=== PATIENT | female | born 1990 | race Caucasian/White ===

== ENCOUNTER 2017-12-08 03:37 | Inpatient (IN) | payer OTHER ==
[2017-12-08] MEDS ORDERED: Sodium Chloride 0.9% 10 ML Syringe FLUSH PRN (04:33)
[2017-12-08] MEDS ORDERED: Lactated Ringers 1,000 ML IV SCH (04:45)
[2017-12-08] MEDS ORDERED: Oxytocin/Lactated Ringers 10 UNIT/1,000 ML BAG IV SCH (04:45)
[2017-12-08] MEDS ORDERED: Lidocaine 1% 50 ML MDV ONE (06:42)
[2017-12-08] MEDS ORDERED: Lidocaine 1% 10 ML MDV INJECT ONE (06:51)
--- NOTE | 2017-12-08 07:53 | PCM.SN ---
- Free Text/Narrative Note: Qing is a 27-year-old 2 now para 2002 white female at 99-1/7 weeks gestational age who was admitted this a.m. in active labor. She changed to 4 cm from 2 cm dilation and was radha every 3-5 minutes. heart was were reassuring. Bag saini was intact. At about 8 cm dilation the bag saini was ruptured. Patient rapidly went on to deliver a viable, 3910 grams (8 pound, 10 oz) male , measuring 22 inches, in an occiput anterior position with patient being in a squatting position leaning over the squatting bar at the time of delivery. Baby delivered at 0731 hrs. The patient had a first-degree laceration which was repaired with 3-0 Monocryl suture in a single figure-of- eight stitch. Seizure was used. Patient not using any analgesia during the course of labor. Her blood was obtained. Pitocin was started IV to facilitate increase in uterine tone and decreased likelihood of bleeding. The placenta delivered in a Eric presentation, appeared intact and complete and was discarded per patient desire. Estimated blood loss was 200 mL. Patient plans to breast-feed. Condition: Good
[2017-12-08] MEDS ORDERED: Witch Hazel Medicated Pads 100/Jar TOP PRN (08:07)
[2017-12-08] MEDS ORDERED: Ibuprofen 600 MG Tab PO PRN (08:07)
[2017-12-08] MEDS ORDERED: Lanolin 100% Cream 7 GM Tube TOP PRN (08:07)
[2017-12-08] MEDS ORDERED: Docusate Sodium 100 MG Cap PO PRN (08:07)
[2017-12-08] MEDS ORDERED: Acetaminophen 325 MG Tab PO PRN (08:07)
[2017-12-08] MEDS ORDERED: Benzocaine/Menthol 20%-0.5% Spray 56 GM Canister TOP PRN (08:07)
--- NOTE | 2017-12-08 09:47 | HP ---
DATE OF ADMISSION: 12/08/2017 ADMISSION DIAGNOSIS: A 39 and 1/7th week intrauterine , active labor. HISTORY OF PRESENT ILLNESS: The patient is a 27-year-old, 2, para 1-0-0-1 white female who was admitted this a.m. with contractions every 5 minutes apart and change in cervix. She has an SHIN of 12/14/2017 as based upon an early ultrasound done on 05/22/2017 at 10 and 4/7th weeks gestational age. This ultrasound was supported by 2 other ultrasounds done on 08/14/2017 and 09/23/2017. Her cervix is changed from last evaluation clinic of 3 cm, 90% effaced, -3 station to 4 cm at this time. She is actively radha. heart tones are reassuring. HISTORY: 2, para 1-0-0-1. Her last menstrual period was on 11/28/2016 was definite, but the patient has periods that vary in length up to 35 days at times for their interval. Menarche age 12. Positive HCG on 04/04/2017. Not using any control at the time of conception. Her last delivery was on 04/22/2016 at 39 and 6/7th weeks gestational age. She labored for 17 hours and delivered a 7 pounds 13 ounces female via normal spontaneous vaginal delivery. That child's name is Louise Layne. The patient's course began with a first visit on 05/22/2017. She had regular evaluations throughout the . Weight gain was from 143 pounds to 194 pounds for 51 pounds weight gain. Her fundal height growth was appropriate and her vital signs remained stable through the . The patient plans to breastfeed. She declined genetic evaluation. She desires natural childbirth. Her [place] Depression Screen score on 08/14/2017 was 1/30. Her group B strep screen is negative. The patient is Rh negative and did receive RhoGAM at second trimester. Date was 09/23/2017. LABORATORY DATA: Her laboratory testing in shows her blood to be O negative with negative antibody screen. First hemoglobin was 13.5 and platelets were 305,000. She is rubella immune. RPR is nonreactive. Hepatitis B surface antigen and HIV assays were both negative. Chlamydia and gonorrhea assays were both negative. Second trimester testing showed hemoglobin decreased to 10.2 g/dL. Her platelets were normal at 235,000. Her 1-hour glucose tolerance test was 101. Group B strep screen was negative. ALLERGIES: None. CURRENT MEDICATIONS: vitamins 1 daily. The patient has been advised to take iron supplementation. PAST MEDICAL HISTORY: 1. 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 2. She was on depression medication in college. 3. Normal spontaneous vaginal delivery in 2016. PAST SURGICAL HISTORY: Tonsillectomy 2005. FAMILY HISTORY: Mother is alive and well. Father is alive. Two brothers. They are alive and well. Maternal grandmother is secondary to colon cancer. Maternal grandfather is secondary to old age. Paternal grandmother is secondary to a fractured hip and complications of this. Paternal grandfather secondary to an accident and stroke. No anesthesia, bleeding, blood clotting problems noted in the family. SOCIAL HISTORY: The patient is . is Dashawn Wellington. The patient works at [employer]. They live in [place]. She does not use any significant amounts of alcohol, drugs, or tobacco. REVIEW OF SYSTEMS: GENERAL: The patient is a well developed, well nourished female who has no concerns. She is in active labor. SKIN: Negative. CARDIOVASCULAR: No chest pain or shortness of breath. RESPIRATORY: No infectious symptoms. BREASTS: Changes associated with . The patient plans to breastfeed. GI: Negative. : Increased fundal height. Baby in vertex presentation by Baltazar maneuvers. EXTREMITIES/MUSCULOSKELETAL: Negative with exception of occasional trace edema in lower extremities bilaterally. NEUROLOGICAL: Negative. PHYSICAL EXAMINATION: VITAL SIGNS: Blood pressure 102/64 on last evaluation in clinic. Weight is 194. GENERAL: The patient is a well-developed, well-nourished, pleasant female, stated age, in no acute distress. SKIN: Warm, dry without lesions. HEENT: Neck and back within normal limits. LUNGS: Clear with good breath sounds in all lung zurita. CARDIOVASCULAR: Shows regular rate and rhythm. ABDOMEN: Protuberant with with last fundal height of 39.5 cm. GENITAL: As above. EXTREMITIES AND NEUROLOGICAL: Grossly within normal limits. ASSESSMENT: 1. A 39 and 1/7th week intrauterine , active labor. 2. Group B strep screen negative. 3. The patient plans to breastfeed. 4. Rubella immune. 5. The patient desires natural labor. PLAN: 1. Anticipate normal spontaneous vaginal delivery. 2. Routine labor care. 3. Intermittent monitoring. MMODAL /[id number]
[2017-12-08] MEDS: Prenatal Multivitamin with Calcium/Folic Acid/Iron Tab PO SCH (17:12)
[2017-12-08] MEDS ORDERED: fentaNYL 100 MCG/2 ML SDV ONE (22:07)
[2017-12-08] MEDS ORDERED: Bupivacaine/fentaNYL/NS 100 ML Bag ONE (22:07)
--- NOTE | 2017-12-09 05:48 | PCM.SN ---
- Free Text/Narrative Note: note: Patient is doing well in the period. Minimal lochia, voiding well, ambulated without problems. Nursing without concerns. Patient is afebrile, vital signs are stable Abdomen is flat, soft, uterus is below the umbilicus and is firm and nontender. Legs are nontender. Assessment: recovery going well. Hemoglobin pending today. Plan: Routine care. Patient be discharged home within the next 24- 48 hours.
--- NOTE | 2017-12-09 10:42 | PCM.DCSUM1 ---
Discharge Summary - Hospital Course Free Text/Narrative:: Qing is a 27-year-old 2 now para 2002 white female at 99-1/7 weeks gestational age who was admitted this a.m. in active labor. She changed to 4 cm from 2 cm dilation and was radha every 3-5 minutes. heart was were reassuring. Bag saini was intact. At about 8 cm dilation the bag saini was ruptured. Patient rapidly went on to deliver a viable, 3910 grams (8 pound, 10 oz) male , measuring 22 inches, in an occiput anterior position with patient being in a squatting position leaning over the squatting bar at the time of delivery. Baby delivered at 0731 hrs. The patient had a first-degree laceration which was repaired with 3-0 Monocryl suture in a single figure-of- eight stitch. Seizure was used. Patient not using any analgesia during the course of labor. Her blood was obtained. Pitocin was started IV to facilitate increase in uterine tone and decreased likelihood of bleeding. The placenta delivered in a Eric presentation, appeared intact and complete and was discarded per patient desire. Estimated blood loss was 200 mL. Patient plans to breast-feed. Spinal patient is done well. She is voiding well, ambulating well, nursing without problems and has minimal lochia. She is desiring discharge home. - Discharge Data Discharge Date: 12/09/17 Discharge Disposition: Home, Self-Care 01 Condition: Good - Patient Instructions Diet: Regular Diet as Tolerated (Nursing diet with increase calories and calcium was recommended) Activity: As Tolerated (No intercourse or tampons until bleeding resolves) Driving: Do Not Drive (2 days) Showering/Bathing: May Shower (May take a bath) Notify Provider of: Fever, Increased Pain, Swelling and Redness, Nausea and/or Vomiting - Discharge Plan Home Medications: Home Meds PNV95/Ferrous Fumarate/FA [ Vitamin Tablet] 1 tab PO DAILY 04/21/16 [ History] Ibuprofen [IJD: Ibuprofen] 600 mg PO Q4H PRN #30 tablet 04/24/16 [Rx] Acetaminophen [Tylenol] 650 mg PO Q4H PRN tablet 12/09/17 [Rx] Referrals: Aris Taylor MD [Primary Care Provider] - - Discharge Summary/Plan Comment DC Time >30 min.: No Discharge Summary/Plan Comment: Discharge instructions: 1. Discharge home 2. Diet, activity and follow-up discussed with patient. Recommend nursing diet with increased calories and calcium. 3. Precautions given concern increased pain, bleeding, temperature, signs/ symptoms of DVT/PE. 4. Medications per home medication was printed, discussed with and given to the patient. 5. Return to clinic-Dr. Taylor[facility] in 2 weeks. Diagnosis: Term -delivered Condition: Good - Patient Data Vitals - Most Recent: Last Vital Signs Temp 36.7 C 12/09/17 04:31 Pulse 77 12/09/17 04:31 Resp 16 12/09/17 04:31 BP 113/63 12/09/17 04:31 Pulse Ox 98 12/09/17 04:31 Weight - Most Recent: 89.675 kg I&O - Last 24 hours: Intake & Output 12/08/17 12/09/17 12/09/17 22:59 06:59 14:59 Intake Total 720 Balance 720 Lab Results - Last 24 hrs: Laboratory Results - last 24 hr 12/08/17 12/09/17 12/09/17 Range/Units 05:00 06:45 06:45 WBC 15.19 H (3.98-10.04) K/mm3 RBC 3.50 L (3.98-5.22) M/mm3 Hgb 9.6 L (11.2-15.7) gm/L Hct 31.0 L (34.1-44.9) % MCV 88.6 (79.4-94.8) fl MCH 27.4 (25.6-32.2) pg MCHC 31.0 L (32.2-35.5) g/dl RDW Std Deviation 45.4 (36.4-46.3) fL Plt Count 236 (182-369) K/mm3 MPV 11.5 (9.4-12.3) fl RPR Non-reactive (NONREACTIVE) Blood Type O NEGATIVE Gel Antibody Screen Positive Screen 0 ros/5 flds - neg RhIG Candidate? Yes Rhogam Indicated Yes, baby rh pos H Med Orders - Current: Current Medications Acetaminophen (Tylenol) 650 mg PO Q4H PRN PRN Reason: mild pain or fever Benzocaine/Menthol (Dermoplast Pain Relief [place]) 0 gm TOP ASDIRECTED PRN PRN Reason: Perineal Comfort Measure Docusate Sodium (Colace) 100 mg PO BID PRN PRN Reason: Constipation Emollient Ointment (Lansinoh Hpa) 0 gm TOP ASDIRECTED PRN PRN Reason: Sore Nipples Ibuprofen (Motrin) 600 mg PO Q4H PRN PRN Reason: Mild pain or fever Prenat Multivit/[place]/Iron/Folic Ac ( Plus Iron) 1 each PO DAILY [facility] Last Admin: 12/08/17 17:12 Dose: Not Given Witziggy Aarti (Tucks) 1 pad TOP ASDIRECTED PRN PRN Reason: Hemorrhoid pain Discontinued Medications Fentanyl (Sublimaze) Confirm Administered Dose 100 mcg .ROUTE .STK-MED ONE Stop: 12/08/17 22:08 Last Admin: 12/09/17 02:09 Dose: Not Given Fentanyl/Bupivacaine HCl (Fentanyl/Bupivacaine/Ns 2 Mcg-0.125% 100 Ml) Confirm Administered Dose 100 ml .ROUTE .STK-MED ONE Stop: 12/08/17 22:08 Last Admin: 12/09/17 02:09 Dose: Not Given Lactated Ringer's (Ringers, Lactated) 1,000 mls @ 100 mls/hr IV ASDIRECTED [facility] Oxytocin/Lactated Ringer's (Pitocin In Lr 10 Units/1,000 Ml) 10 unit in 1,000 mls @ 500 mls/hr IV ASDIRECTED [facility] Lidocaine HCl (Xylocaine 1%) Confirm Administered Dose 50 ml .ROUTE .STK-MED ONE Stop: 12/08/17 06:43 Last Admin: 12/08/17 17:12 Dose: Not Given Lidocaine HCl (Xylocaine 1%) 10 ml INJECT ONETIME ONE Stop: 12/08/17 06:52 Last Admin: 12/09/17 02:10 Dose: Not Given Sodium Chloride (Saline Flush) 10 ml FLUSH ASDIRECTED PRN PRN Reason: Keep Vein Open
[2017-12-09 14:10] VITALS: BP 116/62
[2017-12-09] MEDS: Prenatal Multivitamin with Calcium/Folic Acid/Iron Tab PO SCH (14:15)
== END 2017-12-09 12:30 | disposition home or self-care (01) | DRG 775 ==
LOC: JD.OBCHECK 03:37 → JD.OB 03:42 → JD.OBCHECK 04:33 → JD.OB 04:52 → OBSVTOIN 07:31 → JD.OB 07:32
PROVIDERS: ADMIT Obstetrics & Gynecology; ATTEND Obstetrics & Gynecology
PROC: 10E0XZZ Delivery of Products of Conception, External Approach (ICD-10-PCS; principal; 2017-12-08)
PROC: 10907ZC Drainage of Amniotic Fluid, Therapeutic from Products of Conception, Via Natural or Artificial Opening (ICD-10-PCS; 2017-12-08)
PROC: 6A550ZT Pheresis of Cord Blood Stem Cells, Single (ICD-10-PCS; 2017-12-08)
DX: O70.0 First degree perineal laceration during delivery (principal); Z3A.39 39 weeks gestation of pregnancy; Z37.0 Single live birth
CPT/HCPCS: 36415; 59025; 59300; 59409; 85027; 86592; J2790

== ENCOUNTER 2021-05-07 17:21 | Inpatient (IN) | payer OTHER ==
[2021-05-07] MEDS ORDERED: Sodium Chloride 0.9% 10 ML Syringe FLUSH PRN (17:38)
[2021-05-07] MEDS ORDERED: Ondansetron 4 MG/2 ML SDV IVPUSH PRN (17:38)
[2021-05-07] MEDS ORDERED: Nalbuphine 10 MG/1 ML Vial IVPUSH PRN (17:38)
[2021-05-07] MEDS ORDERED: Oxytocin/Lactated Ringers 10 UNIT/1,000 ML BAG IV SCH ×2 (17:45)
[2021-05-07] MEDS ORDERED: Lactated Ringers 1,000 ML IV SCH (17:45)
--- NOTE | 2021-05-07 21:50 | PCM.LDHP ---
L&D History of Present Illness - General Date of Service: 05/07/21 Admit Problem/Dx: Patient Status Order with Admit Dx/Problem 05/07/21 17:38 Patient Status [ADT] Routine Admission Diagnosis/Problem Admission Diagnosis/Problem 05/07/21 21:27 Qing is a 30-year-old 3 para 2-0-0-2 female at 39-5/7 weeks gestational age with an SHIN of 05/09/2021 admitted for induction of labor. Source of Information: Patient History Limitations: Reports: No Limitations - History of Present Illness Introduction:: Qing is a 30-year-old 3 para 2-0-0-2 female at 39-5/7 weeks gestational age with an SHIN of 05/09/2021 admitted for induction of labor. The procedure, risk, benefits, alternatives of care including allowing for natural onset of labor discussed with patient. She appears understand and wished to proceed. [employer]ATORY ASSISTANT history: 3 para 2-0-0-2. Patient had menarche at age 11. Cycles q. 28 days, regular. Certain last menstrual period started 08/02/2020 and is the dating parameter for the . Patient has had no abnormal Pap smears in the past. She has had no STIs. Past obstetric history includes the followin. Male infant born 12/08/2019 at 39-1/7 weeks gestational [facility] Brendon 2. Female born 04/22/2018 at 39-6/[facility]-child's name is Louise Layne course: Grace was first seen for care on 10/12/2020 at 10-1/7 weeks gestational age. Ultrasound done at that time showed a final SHIN of 05/09/2021 which is consistent with her LMP dating. Follow-up ultrasounds done on 12/28/2020 and again on 01/31/2021 were consistent with dates. Patient is seen regularly throughout the course. Her weight gain was from 184 up to one 222.8 for a 36 pound increase. Fundal height growth was appropriate. Patient desires natural . She is group B strep negative. She plans to breast-feed. She declines prequel noninvasive screen. RhoGam was given on 02/15/2021 per protocol. Immunizations include Tdap given 03/13/2021. She is rubella immune. Laboratory testing in shows blood to be O- with a negative antibody screen. First hemoglobin was 12.9 and platelets were 284,000. She is rubella immune. RPR is nonreactive. Urine culture negative. Hepatitis B surface antigen and HIV assays were both negative. Chlamydia, gonorrhea and hepatitis C evaluations were all negative. Second trimester labs showed hemoglobin 11.0 g/dL which time patient was started on ferrous sulfate 325 mg/day. Her platelets were 288,000 and her 1 hour GTT was normal at 116. Antibody screen on 02/14/2021 was negative. Group B strep screen was negative. Allergies: None Medications: 1. Ferrous sulfate 325 mg p.o. daily 2. vitamins daily Past medical history: 1. x2. 2. Patient had a reaction to TB testing Past surgical history 1. Tonsillectomy 2005 Family history: Mother is alive and well. Father is alive. She has 2 brothers normally in good health. Maternal grandmother secondary to colon cancer. Maternal grandfather secondary to old age. Paternal grandmother secondary to fractured hip and complications related to that. Paternal grandfather secondary to accident and a stroke. There is no asthma, anesthesia, bleeding or blood clotting problems noted in the family. Social history: Patient is . She works as [employer]. She does not use any significant muscle alcohol drugs tobacco. is Dashawn. Review of systems: In general patient has no complaints. On admission to labor letter she is having some contractions approximately every 6 minutes. No bloody show, leakage of fluid or other problems noted. Baby has been active. Skin: Negative Lungs: No infectious symptoms or shortness of breath Cardiovascular: No chest pain or exercise intolerance Breasts: No lumps, changes in size, pain, dimpling, discharge or axillary or supraclavicular concerns. GI: Negative : As per HPI. Some contractions noted. Musculoskeletal: Negative Neurological: Negative In general the patient is well-developed, well-nourished, pleasant female of stated age in no acute distress. Skin is warm dry without lesions. HEENT, neck and back within normal limits. Lungs are clear with good breath sounds in all lung zurita. Cardiovascular exam shows regular and rhythm without murmurs. Breast exam done previously at first visit was unremarkable and ther efore it is not really done. Patient plans to breast-feed. Abdomen is gravid with last fundal height in clinic on 05/07/2021 at 40.5 cm. Baby in vertex presentation. Genital per digital evaluation on admission was 3 cm, 9% effaced, mid position, -2 station, cephalic presentation, soft. AROM undertaken with resultant clear amniotic fluid. Extremities and neurological exam are grossly within normal limits. - Related Data Allergies/Adverse Reactions: Allergies Allergy/AdvReac Type Severity Reaction Status Date / Time No Known Allergies Allergy Verified 05/07/21 17:35 Home Medications: Home Meds Pnv No.95/Ferrous Fum/Folic AC [ Vitamin Tablet] 1 tab PO DAILY 04/21/16 [History] Ferrous Sulfate [Iron] 325 mg PO DAILY 05/07/21 [History] Past Medical History HEENT History: Reports: None Respiratory History: Reports: TB, Other (See Below) Other Respiratory History: had reaction to TB test and was treated. ? whether or not had TB [employer]ATORY ASSISTANT History: Reports: Hematologic History: Reports: Anemia Dermatologic History: Reports: Other (See Below) Other Dermatologic History: Skin tags during - Infectious Disease History Infectious Disease History: Reports: TB, Other (See Below) Other Infectious Disease History: Unknown if actual TB infection or not, but treated previously - Past Surgical History HEENT Surgical History: Reports: Tonsillectomy Respiratory Surgical History: Reports: None Dermatological Surgical History: Reports: None Social & Family History - Family History Family Medical History: Unobtainable - Tobacco Use Tobacco Use Status *Q: Never Tobacco User - Caffeine Use Caffeine Use: Reports: None - Recreational Drug Use Recreational Drug Use: No H&P Review of Systems - Review of Systems: Review Of Systems: See Below L&D Exam - Exam Exam: See Below - Vital Signs Vital Signs: Last Vital Signs Temp 36.9 C 05/07/21 17:51 Pulse 79 05/07/21 17:51 Resp 18 05/07/21 17:51 BP 126/64 05/07/21 17:51 Pulse Ox 99 05/07/21 17:51 Weight: 104.78 kg - Patient Data Lab Results Last 24 hrs: Laboratory Results - last 24 hr 05/07/21 05/07/21 Range/Units 18:00 18:28 WBC 10.43 H (3.98-10.04) K/mm3 RBC 3.82 L (3.98-5.22) M/mm3 Hgb 10.6 L (11.2-15.7) gm/dl Hct 34.1 (34.1-44.9) % MCV 89.3 D (79.4-94.8) fl MCH 27.7 (25.6-32.2) pg MCHC 31.1 L (32.2-35.5) g/dl RDW Std Deviation 47.3 H (36.4-46.3) fL Plt Count 285 (182-369) K/mm3 MPV 11.3 (9.4-12.3) fl Neut % (Auto) 73.2 H (34.0-71.1) % Lymph % (Auto) 16.0 L (19.3-51.7) % Saline % (Auto) 7.6 (4.7-12.5) % Eos % (Auto) 1.5 (0.7-5.8) Baso % (Auto) 0.3 (0.1-1.2) % Neut # (Auto) 7.63 H (1.56-6.13) K/mm3 Lymph # (Auto) 1.67 (1.18-3.74) K/mm3 Saline # (Auto) 0.79 H (0.24-0.36) K/mm3 Eos # (Auto) 0.16 (0.04-0.36) K/mm3 Baso # (Auto) 0.03 (0.01-0.08) K/mm3 SARS-CoV-2 RNA (DENISSE) Negative (NEGATIVE) Result Diagrams: 05/07/21 18:28 - Problem List (1) 39 weeks gestation of SNOMED Code(s): 58295299 ICD Code: Z3A.39 - 39 WEEKS GESTATION OF Status: Acute Current Visit: Yes Problem List Initiated/Reviewed/Updated: Yes Orders Last 24hrs: Active Orders 24 hr Category Date Time Status Patient Status [ADT] Routine ADT 05/07/21 17:38 Active Activity as Tolerated [RC] PF Care 05/07/21 17:38 Active Communication Order [RC] ASDIRECTED Care 05/07/21 17:38 Active Notify Provider [RC] [facility] Care 05/07/21 17:38 Active Notify Provider [RC] PRN Care 05/07/21 17:38 Active Peripheral IV Care [RC] . DIRECTED Care 05/07/21 17:38 Active Vital Signs [RC] PER UNIT ROUTINE Care 05/07/21 17:38 Active Regular Diet [DIET] Diet 05/07/21 Dinner Active BLOOD BANK HOLD SPECIMEN [BBK] Stat Lab 05/07/21 18:28 Received RAPID PLASMA REAGIN,RPR [CHEM] Routine Lab 05/07/21 18:28 Received Lactated Ringers [Ringers, Lactated] 1,000 ml Med 05/07/21 17:45 Active IV ASDIRECTED Nalbuphine [Nubain] Med 05/07/21 17:38 Active 10 mg IVPUSH Q2H PRN Ondansetron [Zofran] Med 05/07/21 17:38 Active 4 mg IVPUSH Q4H PRN Oxytocin/Lactated Ringers [Pitocin in LR 10 Units/1,000 Med 05/07/21 17:45 Active ML] 10 unit in 1,000 ml IV .CONTINUOUS Oxytocin/Lactated Ringers [Pitocin in LR 10 Units/1,000 Med 05/07/21 17:45 Active ML] 10 unit in 1,000 ml IV TITRATE Sodium Chloride 0.9% [Saline Flush] Med 05/07/21 17:38 Active 10 ml FLUSH ASDIRECTED PRN Electronic Heart Tones Ext w TOCO [WOMSER] Oth 05/07/21 17:38 Ordered Routine Electronic Heart Tones Internal [WOMSER] Per Unit Oth 05/07/21 17:38 Ordered Routine Peripheral IV Insertion Adult [OM.PC] Routine Oth 05/07/21 17:38 Ordered Resuscitation Status Routine Resus Stat 05/07/21 17:38 Ordered Medication Orders Oxytocin/Lactated Ringer's (Pitocin In Lr 10 Units/1,000 Ml) 10 unit in 1,000 mls @ 12 mls/hr IV TITRATE HERBER; Protocol Oxytocin/Lactated Ringer's (Pitocin In Lr 10 Units/1,000 Ml) 10 unit in 1,000 mls @ 500 mls/hr IV .CONTINUOUS HERBER Lactated Ringer's (Ringers, Lactated) 1,000 mls @ 100 mls/hr IV ASDIRECTED HERBER Nalbuphine HCl (Nalbuphine 10 Mg/1 Ml Vial) 10 mg IVPUSH Q2H PRN PRN Reason: Pain Ondansetron HCl (Ondansetron 4 Mg/2 Ml Sdv) 4 mg IVPUSH Q4H PRN PRN Reason: Nausea/Vomiting Sodium Chloride (Sodium Chloride 0.9% 10 Ml Syringe) 10 ml FLUSH ASDIRECTED PRN PRN Reason: Keep Vein Open Assessment/Plan Comment:: 1. Qing is a 30-year-old 3 para 2-0-0-2 female at 39-5/7 weeks gestational age with an SHIN of 05/09/2021 admitted for induction of labor. 05/07/21. 2. Group B strep negative 3. Patient desires natural labor 4. In early labor at the time of admission for induction. 5. Patient plans to breast-feed 6. She is rubella immune. Tdap was given on 03/13/2021 Plan: 1. AROM undertaken for induction of labor with resultant clear amniotic fluid 2. Intermittent monitoring 3. Natural childbirth per patient desire 4. Support breast-feeding decision 5. Routine admission labs consist of RPR, Covid testing.
--- NOTE | 2021-05-07 22:08 | PCM.SN.2 ---
- Free Text/Narrative Note: Delivery note: Stage I: Qing is a 30-year-old 3 now para 3-0-0-3 female at 39-5/7 weeks gestational age with an SHIN of 05/09/2021 admitted for induction of labor. 05/07/21. She underwent AROM with resultant clear amniotic fluid. This placed her into an active course of labor and over the course the next 2 hours patient became completely dilated. She had no analgesia on board. heart tones looked reassuring. Patient decided to deliver in a squatting presentation. Stage II: Qing delivered in a squatting position on the bed. She delivered a male infant with Apgars of, a length of, a birthweight of 4040 grams (8 pounds, 14.5 ounces) in a direct occiput anterior position at 2112 hrs. on 07/07/2020. scores were 7 and 9. Length was 22.0 inches. Shoulder delivered anteriorly first and posteriorly without problems. Nose and mouth were bulb suctioned. Pitocin was administered via IV to facilitate increase in uterine tone and decrease likelihood of bleeding. Cord was allowed to pulsate for approximately 4 minutes then was clamped x2 and cut by the baby's Father Dashawn. Umbilical cord had 3 vessels. Cord blood obtained. Stage III: The placenta delivered at 2117 hrs. in a Elizalde presentation, appeared intact and complete and was discarded per patient desire. No signific ant lacerations were noted and no suturing was needed. Estimated blood loss was 200 cc. Patient plans to breast-feed. Condition: Good Time Documentation
[2021-05-08] MEDS ORDERED: Witch Hazel Medicated Pads 40/Jar TOP PRN (01:28)
[2021-05-08] MEDS ORDERED: Ibuprofen 600 MG Tab PO PRN (01:29)
[2021-05-08] MEDS ORDERED: Docusate Sodium 100 MG Cap PO PRN (16:10)
[2021-05-09 04:14] VITALS: BP 121/86; PULSE 73
--- NOTE | 2021-05-09 07:57 | PCM.DCSUM1 ---
Discharge Summary - Hospital Course Diagnosis: Stroke: No - Discharge Data Discharge Date: 05/09/21 Discharge Disposition: Home, Self-Care 01 Condition: Good - Referral to Home Health Primary Care Physician: Aris Taylor MD - Patient Summary/Data Hospital Course: Stage I: Qing is a 30-year-old 3 now para 3-0-0-3 female at 39-5/7 we eks gestational age with an SHIN of 05/09/2021 admitted for induction of labor. 05/07/21. She underwent AROM with resultant clear amniotic fluid. This placed her into an active course of labor and over the course the next 2 hours patient became completely dilated. She had no analgesia on board. heart tones looked reassuring. Patient decided to deliver in a squatting presentation. Stage II: Qing delivered in a squatting position on the bed. She delivered a male with Apgars of, a length of, a birthweight of 4040 grams (8 pounds, 14.5 ounces) in a direct occiput anterior position at 2112 hrs. on 05/07/2021. scores were 7 and 9. Length was 22.0 inches. Shoulder delivered anteriorly first and posteriorly without problems. Nose and mouth were bulb suctioned. Pitocin was administered via IV to facilitate increase in uterine tone and decrease likelihood of bleeding. Cord was allowed to pulsate for approximately 4 minutes then was clamped x2 and cut by the baby's Father Dashawn. Umbilical cord had 3 vessels. Cord blood obtained. Stage III: The placenta delivered at 2117 hrs. in a Elizalde presentation, appeared intact and complete and was discarded per patient desire. No significant lacerations were noted and no suturing was needed. Estimated blood loss was 200 cc. Patient plans to breast-feed. Condition: Good - Patient Instructions Diet: Heart Healthy Diet Activity: No Strenuous Activities Driving: May Drive Today Notify Provider of: Fever, Increased Pain, Swelling and Redness, Drainage, Nausea and/or Vomiting - Discharge Plan *PRESCRIPTION DRUG MONITORING PROGRAM REVIEWED*: No *COPY OF PRESCRIPTION DRUG MONITORING REPORT IN PATIENT JOSE: No Home Medications: Home Meds Pnv No.95/Ferrous Fum/Folic AC [ Vitamin Tablet] 1 tab PO DAILY 04/21/16 [History] Ferrous Sulfate [Iron] 325 mg PO DAILY 05/07/21 [History] Patient Handouts: Care After Vaginal Delivery Referrals: Aris Taylor MD [Primary Care Provider] - (2) - Discharge Summary/Plan Comment DC Time >30 min.: No Total # of Minutes for Discharge Time: 15 - General Info Date of Service: 05/09/21 Functional Status: Reports: Pain Controlled - Review of Systems General: Reports: No Symptoms HEENT: Reports: No Symptoms Pulmonary: Reports: No Symptoms Cardiovascular: Reports: No Symptoms Gastrointestinal: Reports: No Symptoms Genitourinary: Reports: No Symptoms Musculoskeletal: Reports: No Symptoms Skin: Reports: No Symptoms Neurological: Reports: No Symptoms Psychiatric: Reports: No Symptoms - Patient Data Vitals - Most Recent: Last Vital Signs Temp 37.1 C 05/09/21 03:43 Pulse 73 05/09/21 03:43 Resp 16 05/09/21 03:43 BP 121/86 05/09/21 03:43 Pulse Ox 98 05/09/21 03:43 Weight - Most Recent: 104.78 kg I&O - Last 24 hours: Intake & Output 05/08/21 05/09/21 05/09/21 22:59 06:59 14:59 Intake Total 0 Balance 0 Lab Results - Last 24 hrs: Laboratory Results - last 24 hr 05/08/21 Range/Units 06:15 Blood Type O NEGATIVE Gel Antibody Screen Negative Screen 2 ros/5 flds - neg RhIG Candidate? Yes Rhogam Indicated Yes, baby rh unknown H Med Orders - Current: Current Medications Docusate Sodium (Docusate Sodium 100 Mg Cap) 100 mg PO BID PRN PRN Reason: Stool Softener Last Admin: 05/08/21 16:20 Dose: 100 mg Documented by: Oxytocin/Lactated Ringer's (Pitocin In Lr 10 Units/1,000 Ml) 10 unit in 1,000 mls @ 12 mls/hr IV TITRATE HERBER; Protocol Oxytocin/Lactated Ringer's (Pitocin In Lr 10 Units/1,000 Ml) 10 unit in 1,000 mls @ 500 mls/hr IV .CONTINUOUS HERBER Lactated Ringer's (Ringers, Lactated) 1,000 mls @ 100 mls/hr IV ASDIRECTED HERBER Last Admin: 05/07/21 21:30 Dose: 100 mls/hr Documented by: Ibuprofen (Ibuprofen 600 Mg Tab) 600 mg PO Q6H PRN PRN Reason: Pain Nalbuphine HCl (Nalbuphine 10 Mg/1 Ml Vial) 10 mg IVPUSH Q2H PRN PRN Reason: Pain Ondansetron HCl (Ondansetron 4 Mg/2 Ml Sdv) 4 mg IVPUSH Q4H PRN PRN Reason: Nausea/Vomiting Sodium Chloride (Sodium Chloride 0.9% 10 Ml Syringe) 10 ml FLUSH ASDIRECTED PRN PRN Reason: Keep Vein Open Witch Aarti (Witch Aarti Medicated Pads 40/Jar) 1 pad TOP ASDIRECTED PRN PRN Reason: Pain - Exam General: Reports: Alert, Oriented HEENT: Reports: Pupils Equal, Pupils Reactive, EOMI, Mucous Membr. Moist/[place] Neck: Reports: Supple Lungs: Reports: Clear to Auscultation, Normal Respiratory Effort Cardiovascular: Reports: Regular Rate, Regular Rhythm GI/Abdominal Exam: Normal Bowel Sounds, Soft, Non-Tender, No Organomegaly, No Distention, No Abnormal Bruit, No Mass, Pelvis Stable Back Exam: Reports: Normal Inspection, Full Range of Motion Extremities: Normal Inspection, Normal Range of Motion, Non-Tender, No Pedal Edema, Normal Capillary Refill Skin: Reports: Warm, Dry, Intact Wound/Incisions: Reports: Healing Well Neurological: Reports: No New Focal Deficit Psy/Mental Status: Reports: Alert, Normal Affect, Normal Mood
== END 2021-05-09 09:27 | disposition home or self-care (01) | DRG 807 ==
LOC: JD.OB 17:21 → OBSVTOIN 21:12 → JD.OB 21:13
PROVIDERS: ADMIT Obstetrics & Gynecology; ATTEND Obstetrics & Gynecology
PROC: 10E0XZZ Delivery of Products of Conception, External Approach (ICD-10-PCS; principal; 2021-05-07)
PROC: 10907ZC Drainage of Amniotic Fluid, Therapeutic from Products of Conception, Via Natural or Artificial Opening (ICD-10-PCS; 2021-05-07)
PROC: 3E0234Z Introduction of Serum, Toxoid and Vaccine into Muscle, Percutaneous Approach (ICD-10-PCS; 2021-05-08)
DX: O99.02 Anemia complicating childbirth (principal); Z37.0 Single live birth; D64.9 Anemia, unspecified; Z20.822 Contact with and (suspected) exposure to COVID-19; O26.893 Other specified pregnancy related conditions, third trimester; Z3A.39 39 weeks gestation of pregnancy; Z67.41 Type O blood, Rh negative
CPT/HCPCS: 36415; 59025; 59409; 85025; 85461; 86592; 86850; 86900; 86901; A9270-GY; J2790; J7120; U0002